=== PATIENT | female | born 1965 | race Caucasian/White ===

== ENCOUNTER → 2016-06-04 | Outpatient (CLI) | payer BC ==
[~2016-06-04] MED LIST: HYDR-4246 PO; HYDR25TA PO; MELO-273 PO; MULT-933 PO; OMEP20TA2 PO; ONDA4TAB4 PO; RED600CA6 PO; UBID1CAP47 PO
--- NOTE | 2016-06-04 16:05 | DI ---
Indication: Right knee pain for 3 to 4 weeks medial to anterior, bone spurs, fluid on the right knee, no known trauma Procedure: MRI KNEE RIGHT W/O CONTRAST: Encounter: Initial Comparison: None Technique: Multiplanar MultiPulse MR images of the right knee were obtained without intravenous contrast. Findings: The osseous structures demonstrate normal marrow signal without abnormal marrow edema to suggest osseous contusion. No discrete fracture cleft. No suspicious osseous lesions. The patellofemoral and tibiofemoral joint spaces and articular cartilage appear maintained without significant degenerative arthrosis or chondromalacia appreciated. The medial and lateral menisci demonstrate normal thickness and signal intensity without tear identified. The anterior and posterior cruciate ligaments are intact. Mild fluid signal external to the medial collateral ligament which could represent mild sprain the lateral collateral ligament and iliotibial band appear intact. The muscles surrounding the knee joint appear normal. The extensor tendons are intact. No significant joint effusion. No Elias's cyst. Prepatellar fluid could represent mild prepatellar bursitis. Impression: 1. Trace fluid signal external to the medial collateral ligament suggesting mild axial sprain. 2. Mildly prominent fluid anterior to the patella potentially related to mild prepatellar bursitis. 3. No other internal derangement of the knee joint appreciated. .
== END ==
LOC: IMA 13:11
PROVIDERS: ATTEND Orthopaedic Surgery
DX: R93.7 Abnormal findings on diagnostic imaging of other parts of musculoskeletal system (principal); M25.561 Pain in right knee

== ENCOUNTER 2016-07-09 05:28 | Day surgery (SDC) | payer BC ==
[~2016-07-09] VITALS: Ht 167.6 cm; Wt 89.2 kg
[2016-07-09] VITALS (13 sets, daily range): BP systolic 113–155; BP diastolic 79–94; PULSE 61–80; RESP 11–22; TEMP 96.8–98.4; O2SAT 91–99; Ht 167.6 cm; Wt 89.2 kg
--- OUTSIDE RECORDS SUMMARY | 2016-07-09 05:31 | XMS REPORT | Continuity of Care Document ---
Author Author [facility] Organization [facility] Address Unknown Phone Unavailable Support Name Relationship Address Phone KUNAL MAI APRN Caregiver [address] [place] [address] Unavailable CAITLYN URIAS MD Caregiver [address] [place] [address] [place] [address] Unavailable ELYSSA GO Next Of Kin [address] [place] [address] Insurance Providers Guarantor Carissa Ojeda Address [address] [place] [address] C Email [email or web address] Policy Number [id number] Subscriber's Name Carissa Ojeda Relationship 18 Self Group Number [id number] Effective Date 12 Advance Directives Directive Response Recorded Date/Time Ordered Resuscitation Status Full Code 05/22/16 2:45pm Resuscitation Documents on File No 05/23/16 7:33am DPOA for Healthcare Only Yes 05/23/16 7:33am Living Will Yes 05/23/16 7:33am Problems Active Problems Medical Problem Onset Date Status CAT BITE Unknown Acute CELLULITIS Unknown Acute Medications Current Home Medications Medication Dose Units Route Directions Days Qty Instructions Start Date Hydrochlorothiazide 25 Mg Tablet 1 Tab Oral Daily 90 05/22/16 Hydrocodone/Acetaminophen ([place] 5-325 Tablet) 5-325 Tablet 1-2 Tab Oral Every 4 Hours as needed for Pain 30 Tablet 05/23/16 Meloxicam 7.5 Mg Tablet 1 Tab Oral Twice A Day 60 05/22/16 Multivitamin (Multi-Day Vitamins) 1 Each Tablet 1 Tab Oral Daily 30 Tablet 05/22/16 Omeprazole Magnesium (Prilosec Otc) 20 Mg Tablet. 1 Tab Oral Bedtime for Acid Reflux 05/23/16 Ondansetron Hcl (Zofran) 4 Mg Tablet 4 Mg Oral Every 6 Hours 05/09 Red Yeast Rice 600 Mg Capsule 1 Cap Oral Daily 05/23/16 Ubidecarenone/Vit E Acetate (Co Q-10 100 Mg Softgel) 1 Each Capsule 1 Cap Oral Daily 05/23/16 Past Home Medications Medication Directions Ordered Status Acetaminophen (Tylenol Extra Strength) 500 Mg Tablet, 1-2 Tab Oral Every 6 Hours as needed for Pain/Fever 05/22/16 Discontinued Acetaminophen/Dp-Hydram Hcl (Tylenol Pm Ex-Str Caplet) 1 Tab Tablet, 1 Tab Oral Daily as needed 03/28/08 Discontinued Ranitidine Hcl (Zantac) 150 Mg Tablet, 150 Mg Oral Twice A Day 03/28/08 Discontinued Social History Social History Problem Response Recorded Date/Time Onset Date Status Reason for Hospitalization thickened endometrium 05/23/2016 9:55am Not Applicable Not Applicable Chewing Tobacco Status No 05/23/2016 7:43am Not Applicable Not Applicable Hx Substance Use No 05/23/2016 7:43am Not Applicable Not Applicable Hx Alcohol Use No 05/23/2016 7:43am Not Applicable Not Applicable Has the pt used tobacco in the last 12 months No 05/23/2016 7:43am Not Applicable Not Applicable Query Response Start Date Stop Date Smoking Status Never smoker Hospital Discharge Instructions Instructions: Care Instructions: I was in the hospital because (patient own words): d&c Discharge Diet: regular Discharge Activity: as instructed Follow Up Appointments: as needed Pending Lab / Results: Will be notified Expected Signs/Symptoms: as written Notify Physician If: any concerns During Business Hours:: Please call the physician's office at [phone] After Business Hours:: Please call [phone] and have the crimping machine operator for metal page the physician. Pain Management/Treatment: RX provided Wound/Incision Care: n/a Condition at time of discharge: Good Plan of Care Discharge Date 05/23/16 10:45am Instructions/Education Provided [facility] [place] [facility] Prescriptions See Medication Section Functional Status Query Response Date Recorded Ability to complete ADL's impeded by No change May 23, 2016 7:33am Allergies, Adverse Reactions, Alerts Allergen Type Severity Reaction Status Last Updated Erythromycin base Allergy Intermediate stomach acid increased making it difficult to breath Active 11/26/12 Meperidine Allergy Severe VOMITING Active 11/26/12 Immunizations Query Response on File Recorded Date/Time Hx Influenza Vaccination Y DEC 2015 05/23/16 7:43am Hx Pneumococcal Vaccination Y 200205/23/16 7:43am Hx Influenza Vaccination Y DEC 2015 05/23/16 7:43am Vital Signs Acute Vital Signs Vital Response Date/Time Temperature (Fahrenheit) 97.8 deg F (96.8 - 99.1) 05/23/2016 9:40am Temperature (Calculated Celsius) 36.10641 degrees C (36.0 - 37.3) 05/23/2016 9:40am Temperature Source Temporal 05/23/2016 9:40am Pulse Rate (adult) 74 bpm (60 - 100) 05/23/2016 10:30am Respiratory Rate 20 breaths/min (10 - 20) 05/23/2016 10:30am O2 Sat by Pulse Oximetry 96 % (90 - 100) 05/23/2016 10:30am Oxygen Delivery Method Room Air 05/23/2016 10:30am Oxygen Flow Rate 6.00 L/min 05/23/2016 9:45am Blood Pressure 128/78 mm Hg 05/23/2016 10:30am Blood Pressure Source Automatic Cuff 05/23/2016 10:30am Height (Feet) 5 feet 05/23/2016 7:33am Height (Inches) 6.00 inches 05/23/2016 7:33am Weight (Kilograms) 89.700 kg 05/23/2016 7:33am Body Mass Index (BMI) 31.9 05/23/2016 7:33am Results Laboratory Results Test Name Result Units Flags Reference Collection Date/Time Result Date/ Time Comments White Blood Count 6.8 T/MM3 4.5-11.0 05/23/2016 7:41am 05/23/2016 7: 49am Red Blood Count 4.71 M/MM3 4.00-5.20 05/23/2016 7:41am 05/23/2016 7: 49am Hemoglobin 14.2 GM/DL 12-16 05/23/2016 7:41am 05/23/2016 7:49am Hematocrit 42.5 % 36-46 05/23/2016 7:41am 05/23/2016 7:49am Mean Corpuscular Volume 90.2 UM3 80-100 05/23/2016 7:41am 05/23/2016 7: 49am Mean Corpuscular Hemoglobin 30.1 UUG 26-34 05/23/2016 7:41am 2016 7:49am Mean Corpuscular Hemoglobin Concent 33.4 GM/DL 31-37 05/23/2016 7:41am 05/23/2016 7:49am RDW Standard Deviation 43.1 FL 36.9-50.2 05/23/2016 7:41am 05/23/2016 7 :49am Platelet Count 275 T/MM3 130-400 05/23/2016 7:41am 05/23/2016 7:49am Mean Platelet Volume 9.4 UM3 9.4-12.4 05/23/2016 7:41am 05/23/2016 7: 49am Neutrophils (%) (Auto) 63.7 % 33-66 05/23/2016 7:41am 05/23/2016 7: 49am Lymphocytes (%) (Auto) 28.2 % 23-45 05/23/2016 7:41am 05/23/2016 7: 49am Monocytes (%) (Auto) 6.1 % 0-9.0 05/23/2016 7:41am 05/23/2016 7:49am Eosinophils (%) (Auto) 1.8 % 0-4 05/23/2016 7:41am 05/23/2016 7:49am Basophils (%) (Auto) 0.1 % 0-2 05/23/2016 7:41am 05/23/2016 7:49am Immature Granulocyte % (Auto) 0.1 % 0.0-0.5 05/23/2016 7:41am 2016 7:49am Absolute Neutrophils (auto) 4.3 T/MM3 1.8-7.7 05/23/2016 7:41am 2016 7:49am Absolute Lymphocytes (auto) 1.9 T/MM3 1-4.8 05/23/2016 7:41am 2016 7:49am Absolute Monocytes (auto) 0.4 T/MM3 0-0.8 05/23/2016 7:41am 05/23/2016 7:49am Absolute Eosinophils (auto) 0.1 T/MM3 0-0.5 05/23/2016 7:41am 2016 7:49am Absolute Basophils (auto) 0.0 T/MM3 0-0.2 05/23/2016 7:41am 05/23/2016 7:49am Absolute Immature Granulocyte (auto 0.01 T/MM3 0.00-0.03 05/23/2016 7: 41am 05/23/2016 7:49am Icterus Index < 2 0-7 05/23/2016 7:41am 05/23/2016 7:56am Chemistry Specimen Hemolysis < 15 0-25 05/23/2016 7:41am 05/23/2016 7 :56am 0-25: Specimen Exhibited No Hemolysis. Turbidity < 20 0-20 05/23/2016 7:41am 05/23/2016 7:56am Sodium Level 143 MEQ/L 134-144 05/23/2016 7:41am 05/23/2016 7:56am Potassium Level 3.9 MEQ/L 3.6-5 05/23/2016 7:41am 05/23/2016 7:56am Chloride Level 106 MEQ/L 98-107 05/23/2016 7:41am 05/23/2016 7:56am Carbon Dioxide Level 28 MEQ/L 22-30 05/23/2016 7:41am 05/23/2016 7: 56am Anion Gap 9 MEQ/L 5-15 05/23/2016 7:41am 05/23/2016 7:56am Blood Urea Nitrogen 15.0 MG/DL 7-17 05/23/2016 7:41am 05/23/2016 7: 56am Creatinine 0.8 MG/DL 0.7-1.2 05/23/2016 7:41am 05/23/2016 7:56am BUN/Creatinine Ratio 19 RATIO 6-26 05/23/2016 7:41am 05/23/2016 7:56am Glomerular Filtration Rate Calc 75 05/23/2016 7:41am 05/23/2016 7: 56am Glucose Level 100 MG/DL 65-110 05/23/2016 7:41am 05/23/2016 7:56am Calculated Osmolality 276 MOSM/KG 261-280 05/23/2016 7:41am 05/23/2016 7:56am Calcium Level 9.8 MG/DL 8.4-10.2 05/23/2016 7:41am 05/23/2016 7:56am Urine Collection Type CLEANCATCH-MIDSTREAM 05/23/2016 7:36am 2016 7:49am Urine Color YELLOW YELLOW 05/23/2016 7:36am 05/23/2016 7:49am Urine Turbidity CLEAR CLEAR 05/23/2016 7:36am 05/23/2016 7:49am Urine Specific [place] 1.020 1.015-1.025 05/23/2016 7:36am 2016 7:49am Urine pH 6.0 5.0-8.0 05/23/2016 7:36am 05/23/2016 7:49am Urine Leukocyte Esterase NEGATIVE NEGATIVE 05/23/2016 7:36am 2016 7:49am Urine Nitrite NEGATIVE NEGATIVE 05/23/2016 7:36am 05/23/2016 7:49am Urine Protein NEGATIVE NEGATIVE 05/23/2016 7:36am 05/23/2016 7:49am Urine Glucose (UA) NEGATIVE NEGATIVE 05/23/2016 7:36am 05/23/2016 7: 49am Urine Ketones NEGATIVE NEGATIVE 05/23/2016 7:36am 05/23/2016 7:49am Urine Urobilinogen 0.2 EU/DL NORMAL 05/23/2016 7:36am 05/23/2016 7: 49am Urine Bilirubin NEGATIVE NEGATIVE 05/23/2016 7:36am 05/23/2016 7: 49am Urine Blood 2+ A NEGATIVE 05/23/2016 7:36am 05/23/2016 7:49am Urine WBC 0-1 /HPF 0-5 05/23/2016 7:36am 05/23/2016 8:03am Urine RBC 3-5 /HPF H 0-3 05/23/2016 7:36am 05/23/2016 8:03am Urine Squamous Epithelial Cells 0-5 05/23/2016 7:36am 05/23/2016 8: 03am Urine Transitional Epithelial Cells 1-3 /HPF 05/23/2016 7:36am 2016 8:03am Urine Bacteria TRACE H NEGATIVE 05/23/2016 7:36am 05/23/2016 8:03am Urine Culture Indicated CULT NOT INDICATED 05/23/2016 7:36am 2016 8:03am Procedures Procedure Status Date Provider(s) Hysteroscopy Completed 05/23/16 CAITLYN URIAS MD Encounters Encounter Location Arrival/Admit Date Discharge/Depart Date Attending Provider Departed [facility] 05/23/16 7:10am 05/23/16 10 :45am CAITLYN URIAS MD
[2016-07-09] MEDS ORDERED: RANI150T7 PO (06:17)
[2016-07-09] MEDS ORDERED: ACET-2723 PO (06:19)
[2016-07-09] MEDS ORDERED: ACET-2930 (06:21)
[2016-07-09 06:31] LABS: ANION GAP 14 MEQ/L (5-15); BUN/CREATININE RATIO 23 RATIO (6-26); CALCIUM 9.8 MG/DL (8.4-10.2); CHLORIDE 107 MEQ/L (98-107); CO2 - CARBON DIOXIDE 23 MEQ/L (22-30); CREATININE 0.6 MG/DL (0.7-1.2); GLOMERULAR FILTRATION RATE 105; GLUCOSE 103 MG/DL (65-110); SODIUM 144 MEQ/L (134-144)
[2016-07-09] MEDS ORDERED: BUPIVACAINE 0.25% (2.5mg/ml) INJ 30ml SDV ONE (06:31)
--- NOTE | 2016-07-09 06:41 | ANESPREOP ---
Anesthesia Record Date and Time DATE: 07/09/16 TIME: 06:39 Proposed Surgical Procedure RIGHT KNEE ARTHROSCOPY Allergies: Coded Allergies: atorvastatin (Verified Allergy, Severe, MUSCLE ACHES, 07/09/16) meperidine (Verified Allergy, Severe, VOMITING, 07/09/16) rosuvastatin (Verified Allergy, Severe, MUSCLE ACHES, 07/09/16) erythromycin base (Verified Allergy, Intermediate, stomach acid increased making it difficult to breath, 07/09/16) Ht/Wt/BMI Height: 5 ' 6.00 " Weight: 89.200 kg BMI: 31.7 kg/m2 Vital Signs Date Time Temp Pulse Resp B/P Pulse Ox O2 Delivery O2 Flow Rate FiO2 07/09/16 06:00 98.4 73 20 125/85 99 Room Air Medications Inpatient Medications Current Medications Medications (Trade) Dose Ordered Sig/Nhan Start Time Stop Time Status Last Admin Dose Admin Lactated Ringer's (Lactated Ringers) 1,000 ml @ 50 mls/hr Q20H 07/09/16 07:00 07/09/16 06:23 50 MLS/HR Acetaminophen (Tylenol Extra Strength) 500 Mg Tablet, 1-2 TAB PO Q6H PRN for PAIN/FEVER, (Reported) Last Taken: on 07/08/16 0800 Acetaminophen/Diphenhydramine (Tylenol Pm Ex- Strength Caplet) 1 Each Tablet, for PRN ORDERS, (Reported) Last Taken: on 07/08/16 2130 Hydrochlorothiazide (Hydrochlorothiazide) 25 Mg Tablet, 1 TAB PO DAILY, (Reported) Last Taken: on 07/08/16 0830 Hydrocodone/Acetaminophen ([place] 5-325 Tablet) 5-325 Tablet, 1-2 TAB PO Q4H PRN for PAIN Last Taken: on 06/24/16 Meloxicam (Meloxicam) 7.5 Mg Tablet, 1 TAB PO BID, ( Reported) Last Taken: on 06/24/16 Multivitamin (Multi-Day Vitamins) 1 Each Tablet, 1 TAB PO DAILY, (Reported) Last Taken: on 06/24/16 Omeprazole Magnesium (Prilosec Otc) 20 Mg Tablet.dr , 1 TAB PO HS, (Reported) Last Taken: on Unknown Date & Time Ondansetron HCl (Zofran) 4 Mg Tablet, 4 MG PO Q6H, (Reported) Last Taken: on Unknown Date & Time Ranitidine HCl (Ranitidine HCl) 150 Mg Tablet, 150 MG PO BID, (Reported) Take 1 tablet, by mouth, 2 times a day. Last Taken: on 07/09/16 0330 Red Yeast Rice (Red Yeast Rice) 600 Mg Capsule , 1 CAP PO DAILY, (Reported) Last Taken: on 06/24/16 Ubidecarenone/Vit E Acetate (Co Q-10 100 mg Softgel ) 1 Each Capsule, 1 CAP PO DAILY, (Reported) Last Taken: on 06/24/16 Currently on Beta Gurdeep: No Medical/Surgical History Anesthesia PMH: Reports: *Hypertension (CONTROLLED WITH MEDS), Arthritis (BACK, KNEES), Headaches (migraines), Hyperlipidemia, Reflux Smoking Status: Never smoker Use Chewing Tobacco?: No Substance Use Type: does not use Alcohol Intake: none HX of Last Menstrual Period: 2013 Past Surgical History Orthopedic Surgeries: Yes - R KNEE SCOPE Abdominal Surgeries: Yes - APPY Genitourinary Surgeries: Cardiac Surgeries: Endocrine Surgeries: Reproductive Surgeries: Yes - R ovary and tube removed,C-SECTIONS,ENDOMETRIAL BX ,TUBAL Neurological Surgeries: Yes - TUMOR REMOVED FROM BRAIN SEPTEMBER 2015 Ear Surgeries: Nose Surgeries: Throat Surgeries: Yes - TONSILLECTOMY Other Surgeries: Yes Anesthesia Adverse Reactions: FOUND nausea and vomiting Hx of Motion Sickness: Yes Pertinent Findings Laboratory Tests 07/09/16 06:16 EKG Rhythm: Sinus Rhythm Physical Exam Respiratory: Bilat breath sounds equal, Lungs clear Cardiovascular: FOUND Regular rate, rhythm Airway Assessment Mallampati Score: III TMD: 3 Fingerbreadths Neck Extension: Good ASA: 2 Plan Anesthesia Plan: TIVA Discussion Discussed risks/options/alternatives of anesthesia and questions answered. Patient consents. Nursing pain assessment noted. Attestation Statement Prior to the delivery of any anesthetic medication, I examined the patient, developed the plan, obtained the patient's consent and discussed the risk and benefits of the procedure with the patient/guardian. LENIN OLIVO Jul 09, 2016 06:41
[2016-07-09] MEDS ORDERED: PROPOFOL 500mg 50 ML IV ONE ×2 (06:44→07:22)
[2016-07-09] MEDS ORDERED: PROPOFOL 200mg 20 ML IV ONE ×2 (06:44→07:09)
[2016-07-09] MEDS ORDERED: DEXAMETHASONE 4mg/ml - 1ml INJECTION ONE (06:45)
[2016-07-09] MEDS ORDERED: SCOPOLAMINE 1.5 MG PATCH TD ONE (06:45)
[2016-07-09] MEDS ORDERED: ONDANSETRON 4mg/2ml INJECTION ONE (06:45)
[2016-07-09] MEDS ORDERED: LIDOCAINE (2%) 100 MG/5 ML PF SYRINGE IV ONE (06:45)
[2016-07-09] MEDS ORDERED: FENTANYL 100mcg/2ml INJECTION ONE (06:48)
[2016-07-09] MEDS ORDERED: KETAMINE 500mg/10ml INJECTION ONE (06:56)
[2016-07-09] MEDS ORDERED: LIDOCAINE 1% (10mg/ml) 2ml SDV INJ ONE (07:00)
[2016-07-09] MEDS ORDERED: LR 1,000 ML IV SCH (07:00)
[2016-07-09] MEDS ORDERED: MORPHINE 10mg/ml vl INJECTION ONE (07:29)
[2016-07-09] MEDS ORDERED: HYDR-3989 PO (07:47)
--- NOTE | 2016-07-09 07:50 | PDPROCED ---
Immediate Operative Note DATE: 07/09/16 TIME: 07:48 Preop Diagnosis: RIGHT KNEE PAIN FAT PAD HYPERTROPHY, PRIMARY OA Postop Diagnosis: Right knee pain, fat pad hypertrophy, primary OA Surgical Procedures: R Knee Arthroscopy (limited debridement, chondroplasty MFC and trochlea) Surgeon: Suzi Bevel Mill Operator: ARRON Giordano Anesthesia: General Complications: none Estimated Blood Loss see anesthesia BLANCA TRIPP Jul 09, 2016 07:50
[2016-07-09] MEDS ORDERED: CEFAZOLIN 1 GRAM INJECTION IV ONE (08:00)
[2016-07-09] MEDS ORDERED: KETOROLAC 30mg/ml INJECTION IV PRN (08:15)
[2016-07-09] MEDS: HYDROCODONE/APAP 5 mg/325 mg TABLET PO PRN ×2 (08:26→08:40)
--- NOTE | 2016-07-09 08:52 | ANESPO ---
Post-Op Note Date 07/09/16 Time: 08:50 Status Pt Participated in Evaluation: Pt participated in person Vital Signs Date Time Temp Pulse Resp B/P Pulse Ox O2 Delivery O2 Flow Rate FiO2 07/09/16 08:45 75 22 155/89 97 Room Air 07/09/16 07:58 4.00 07/09/16 07:45 96.8 Respiratory Function: Airway patent, Regular respirations Cardiovascular Function: Regular pulse Mental Status: Alert/oriented Pain Level Intensity: 5 Unable to Assess Pain Due To: Pt Sleeping Hydration: Taking po fluids Complications during Recovery None apparent Follow-Up Instructions Instructions Per Surgeon LUIS DANIEL REGAN CRNA Jul 09, 2016 08:52
--- NOTE | 2016-07-09 09:14 | OPNOTEF ---
DATE OF OPERATION 07/09/2016 PREOPERATIVE DIAGNOSIS Right knee fat pad impingement. POSTOPERATIVE DIAGNOSIS 1. Right knee fat pad impingement. 2. 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 3. 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 PROCEDURE 1. Right knee arthroscopic limited synovectomy of the anterior compartment. 2. Right knee arthroscopic shaving chondroplasty medial trochlear ridge and medial femoral condyle. SURGEON Nehemias Archer MD BUDGET COORDINATOR Matthias Ferguson PA-C ANESTHESIA TIVA FLUIDS Please refer to Anesthesia chart. EBL Minimal. TOURNIQUET Please refer to Anesthesia chart. COMPLICATIONS None. CONDITION Stable to recovery room. DESCRIPTION OF PROCEDURE Patient was identified in the preoperative holding area. The operative extremity was identified and appropriately marked. Risks, benefits, alternatives and potential complications were discussed and informed consent was obtained. The patient was taken to the operating theatre, placed supine on the operating table. Appropriate cardiorespiratory monitors were applied. TIVA anesthesia was induced. A tourniquet was applied high on the right thigh though not yet inflated. The right lower extremity was sterilely prepped and draped in the usual fashion. Surgical time-out was performed, confirmed with myself, the spool hauler and circulating nurse. Preoperative antibiotics were given. Examination under anesthesia revealed full passive range of motion. No ligamentous instability. The leg was elevated and the tourniquet was inflated. A standard inferolateral portal was created. The arthroscope was inserted and the knee was insufflated with saline. Needle localization was utilized to establish an inferomedial portal. Diagnostic examination ensued. Visualization of the anterior compartment and patellofemoral joint were extremely limited secondary to hypertrophic fat pad. The ligamentum mucosum remained attached. This was released with a suction shaver. This afforded a small amount of room but there continued to be a fair amount of bulbous fat pad over the anteromedial aspect of the knee. A shaver was introduced and a limited synovectomy was performed. This revealed high-grade chondral lesion in the medial trochlear ridge somewhat distally. With the knee in full extension, it did not engage with the patellofemoral joint or the medial compartment. However, upon deep flexion, it did engage with the medial facet of the patella. There were some loose chondral flaps at the edges which were debrided with a suction shaver as well as an arthroscopic basket forceps. Patella cartilage itself was well maintained as was the cartilage of the lateral trochlear ridge. The medial compartment was entered noting an intact medial meniscus. Tibial articular cartilage was well maintained. There was a small area of grade 2-3 change to the medial femoral condyle which also was debrided with a shaver. Tibial cartilage was well maintained. The intercondylar notch was visualized noting an intact ACL and PCL. Lateral compartment was entered noting grade 2 and 3 change of the central and posterior portion of the lateral tibial plateau. No significant debridement was performed. The lateral meniscus and lateral femoral articular cartilage was well maintained. The scope was then moved to the medial compartment to visualize the lateral aspect of the anterior compartment which again showed hypertrophic fat pad. This was debrided with a shaver as well. The knee was then copiously lavaged, irrigated and drained. All arthroscopic instruments were removed. Portals were closed with nylon sutures. Marcaine was injected around the portal sites, Marcaine cocktail was injected in the joint. Sterile dressings were applied followed by an Fabian bandage. Tourniquet was deflated. The patient was awakened from anesthesia and taken to the recovery room in stable and satisfactory condition. CHRISTINE
--- NOTE | 2016-07-09 09:45 | NUR ---
REPORT REPORT GIVEN TO Sandra TURNER RN
--- NOTE | 2016-07-09 10:20 | NUR ---
STATUS PATIENT ASSISTED TO SIDE OF BED. DENIES NAUSEA, STATES PAIN AT 3 ON 0-10 SCALE. STATES SHE IS READY TO GO HOME.
== END 2016-07-09 10:35 | disposition home or self-care (01) ==
LOC: NSC 05:28
PROVIDERS: ATTEND Orthopaedic Surgery
DX: M79.4 Hypertrophy of (infrapatellar) fat pad (principal); M94.261 Chondromalacia, right knee; I10 Essential (primary) hypertension; G43.019 Migraine without aura, intractable, without status migrainosus; M19.90 Unspecified osteoarthritis, unspecified site; E78.2 Mixed hyperlipidemia; J30.9 Allergic rhinitis, unspecified; K21.9 Gastro-esophageal reflux disease without esophagitis; Z79.899 Other long term (current) drug therapy; Z79.1 Long term (current) use of non-steroidal anti-inflammatories (NSAID); Z79.51 Long term (current) use of inhaled steroids; Z88.1 Allergy status to other antibiotic agents; Z88.5 Allergy status to narcotic agent; Z88.8 Allergy status to other drugs, medicaments and biological substances
CPT/HCPCS: 29877; 80048; J0690; J1100; J1885; J2405; J2704; J3010; J7120; S0020